=== PATIENT | male | born 1960 | race Caucasian/White ===

== ENCOUNTER 2019-10-17 07:26 | Emergency (ER) | payer MEDICAID, SELFPAY ==
[~2019-10-17] VITALS: Ht 175.3 cm; Wt 77.3 kg
--- NOTE | 2019-10-17 08:45 | NUR ---
PT PLACED ON 2L NC FOR SPO2 83% ON RA WHILE SLEEPING, NOTIFIED. PT C/O SOB. PT PLACED ON ISOLATION AND CXR ORDERED. PT DOES HAVE HX OF COPD BUT STATES HE IS NOT ON HOME O2
--- NOTE | 2019-10-17 08:52 | NUR ---
PER CT THEY ARE REQUIRED TO WAIT UNTIL CURRENT EXAM ENDED TO TAKE PT TO CT HE IS IN ISOLATION AT THIS TIME
[2019-10-17 09:04] VITALS: BP 142/101
[2019-10-17] MEDS ORDERED: ALBUTEROL/IPRATROPIUM 2.5MG/0.5MG, 3 ML NEB ONE (09:30)
[2019-10-17] MEDS ORDERED: ALBUTEROL HFA 90 MCG/SPRAY INH PRN (10:30)
--- NOTE | 2019-10-17 10:48 | NUR ---
PER MD HOLD [facility] [place] AND GIVE MDI FOR PT TO TAKE HOME INSTEAD. PT TO BE DC'D
== END 2019-10-17 11:35 | disposition home or self-care (01) ==
LOC: ED 08:07
DX: J44.1 Chronic obstructive pulmonary disease with (acute) exacerbation (principal); I45.10 Unspecified right bundle-branch block; M54.2 Cervicalgia; F17.200 Nicotine dependence, unspecified, uncomplicated; Z79.01 Long term (current) use of anticoagulants
CPT/HCPCS: 70450; 71045; 93005; 99284; J7512